=== PATIENT | male | born 1940 | race Caucasian/White ===

== ENCOUNTER 2018-10-19 15:27 | Inpatient (IN) ==
[2018-10-19] MEDS ORDERED: LOVENOX 1 MG/KG SUBQ ONE (15:31)
--- NOTE | 2018-10-19 15:50 | Diag Imaging Result Doc PS360 ---
CHEST-PORTABLE - 10/19/2018 INDICATION: arm pain COMPARISON: 05/07/2018 FINDINGS: Stable CABG changes. Stable right-sided pacemaker. Heart size is slightly enlarged. Pulmonary vascularity is normal. There are trace bilateral pleural effusions. No infiltrates or edema. IMPRESSION: Nonspecific findings. Electronically signed by Keegan Rojas 10/19/2018 3:48 PM
[2018-10-19] MEDS ORDERED: LOVENOX SUBQ ONE (16:00)
--- NOTE | 2018-10-19 16:15 | PROVIDER DOCUMENTATION ---
This chart was entered by Mallory High Scribe, acting as scribe for Mannie Lynch MD. HPI-General Adult - General Chief Complaint: Extremity Pain Stated Complaint: DR EASLEY/DR ENRIQUE REF Time Seen by Provider: 10/19/18 15:30 Source: patient Allergies/Adverse Reactions: Patient Allergies Allergy/AdvReac Type Severity Reaction Status Date / Time No Known Allergies Allergy Verified 08/12/18 08:22 Home Medications: Home Medication List Medication Instructions Recorded Confirmed Last Taken Type Apixaban [Eliquis] 5 mg PO BID 05/07/18 10/19/18 10/19/18 History Aspirin [Adult Aspirin] 81 mg PO QHS 05/07/18 10/19/18 10/18/18 History Cholecalciferol (Vitamin D3) 2,000 unit PO DAILY 05/07/18 10/19/18 10/19/18 History [Vitamin D3] Cyanocobalamin (Vitamin B-12) 5,000 mcg PO DAILY 05/07/18 10/19/18 10/19/18 History [Vitamin B12] ROSUVAstatin [Crestor] 20 mg PO QHS 05/07/18 10/19/18 10/18/18 History Sacubitril/Valsartan [Entresto 24 1 each PO DAILY 05/07/18 10/19/18 10/19/18 History mg-26 mg Tablet] Vit C/Vit E Acetate/Lutein/Min 1 each PO DAILY 05/07/18 10/19/18 10/19/18 History [Ocuvite Lutein Capsule] Cabozantinib S-Malate [Cabometyx] 20 mg PO QHS 08/12/18 10/19/18 10/18/18 History Furosemide [Lasix] 20 mg PO DAILY 08/12/18 10/19/18 10/19/18 History Hydrocodone/Acetaminophen [[place] 1 each PO Q6H PRN PRN #12 tablet 08/12/1810/19 Unknown Rx 7.5-325 Tablet] Mirtazapine [Remeron] 15 mg PO QHS 08/12/18 10/19/18 10/18/18 History Acetaminophen [Tylenol] 1,000 mg PO Q6H PRN PRN 10/19/18 10/19/18 Unknown History Biotin 2,500 mcg PO DAILY 10/19/18 10/19/18 10/19/18 History - History of Present Illness -Gen Adult Nature of Presenting Problems: Patient is a 78 year old male who presents to the ED with right arm pain and swelling. Patient's daughter states patient was seen by PCP this morning and informed he has a blood clot in right arm. Patient's daughter states patient has a history of renal cell carcinoma with mets. Patient's daughter states patient is on Eliquis. Location of Pain/Injury: reports: upper extremity (right arm) Pain Radiation: reports: no radiation Quality of Pain: reports: aching Severity: reports: mild Onset/Duration: reports: this morning Timing: reports: still present Context/Activities at Onset: reports: light activity Modifying Factors: improves with: nothing Associated Symptoms: reports: denies symptoms Similar Symptoms Previously?: No Recently seen or treated by another doctor?: Yes Review of Systems - Adult - REVIEW OF SYSTEMS - ADULT Constitutional: reports: no symptoms reported Eyes: reports: no symptoms reported Ears, Nose, Mouth & Throat: reports: no symptoms reported Cardiovascular: reports: no symptoms reported Respiratory: reports: no symptoms reported Gastrointestinal: reports: no symptoms reported Genitourinary: reports: no symptoms reported Musculoskeletal: reports: other (right arm pain and swelling). denies: back pain, neck pain Integumentary: reports: no symptoms reported Neurological: reports: no symptoms reported Psychiatric: reports: no symptoms reported Endocrine: reports: no symptoms reported Hematologic/Lymphatic: reports: no symptoms reported Allergic/Immunologic: reports: no symptoms reported All Other Systems: Reviewed and Negative Past History - Adult - PAST MEDICAL HISTORY-ADULT Review of Records: reports: Nursing Assessment Review, Medications Reviewed, Social history reviewed & non-contributory. Major Childhood Illnesses: reports: denies history Cardiovascular: reports: CHF, hyperlipidemia, pacemaker (defibrillator) Respiratory: reports: denies history Gastrointestinal: reports: denies history Obstetrical/Gynecological: reports: denies history Genitourinary: reports: cancer (R kidney) Musculoskeletal: reports: denies history Neurological: reports: denies history Psychiatric: reports: denies history Endocrine/Immune: reports: cancer (lymph node under R arm) Other Conditions: reports: cataract/glaucoma - PRIOR SURGERIES/PROCEDURES Surgical/Procedure History: reports: CABG, hernia repair, other (cataract removal, R nephrectomy, carotid, DVT removed) - IMMUNIZATION STATUS Childhood Immunizations: See Nurse Assessment Flu Vaccine: See Nurse Assessment - FAMILY HISTORY Family History: reviewed, not pertinent - SOCIAL HISTORY Smoking: denies Substance Use: denies Physical Exam-General - PHYSICAL EXAM-ADULT Initial Vital Signs Reviewed: Yes - CONSTITUTIONAL General Appearance: alert, no apparent distress - HEAD, EARS, NOSE, MOUTH & THROAT HENMT: normal ENT inspection - NECK Neck: normal inspection - RESPIRATORY Respiratory: chest non-tender, lungs clear, normal breath sounds - CARDIOVASCULAR Cardiovascular: normal peripheral pulses, irregularly irregular - GASTROINTESTINAL (ABDOMEN) Abdominal Exam: normal bowel sounds, non tender, soft - MUSCULOSKELETAL Extremity: non-tender, other (3 + pitting edema to right upper extremity.) - SKIN Integumentary: normal color, normal turgor, warm/dry - NEUROLOGIC Neurologic: grossly normal - PSYCHIATRIC Psych/Mental Status: normal mood/affect, oriented x 3 Progress - PLAN OF CARE/RESULTS Progress/Plan/Lab Results: Vital Signs - 8 hr 10/19/18 15:32 Temperature 97.5 F L Pulse Rate 115 H Respiratory Rate 18 Blood Pressure 109/93 O2 Sat by Pulse Oximetry 100 Orders Category Date Time Status Saline Loc NOW Care 10/19/18 15:30 Active CHEST-PORTABLE [RAD] Stat Exams 10/19/18 15:31 Ordered CBC WITH ELECTRONIC DIFF [HEME] Stat Lab 10/19/18 15:30 Uncollected COMPREHENSIVE METABOLIC PANEL [CHEM] Stat Lab 10/19/18 15:30 Uncollected PRO B-NATRIURETIC PEPTIDE Stat Lab 10/19/18 15:31 Uncollected PROTIME WITH INR [COAG] Stat Lab 10/19/18 15:31 Uncollected PTT [COAG] Stat Lab 10/19/18 15:31 Uncollected TROPONIN T Stat Lab 10/19/18 15:31 Uncollected Enoxaparin 1 mg/kg [Lovenox 1 mg/kg] Med 10/19/18 15:31 Discontinued 1 each SUBQ NOW ONE - REASSESSMENT Reassessment #1 Time Reassessed: 16:15 Status: unchanged (given lovenox, labs currently pending.) - XRAY 1 XRAY Study: Chest Impression: See EMR Report ( CHEST-PORTABLE - 10/19/2018 INDICATION: arm pain COMPARISON: 05/07/2018 FINDINGS: Stable CABG changes. Stable right-sided pacemaker. Heart size is slightly enlarged. Pulmonary vascularity is normal. There are trace bilateral pleural effusions. No infiltrates or edema. IMPRESSION: Nonspecific findings. Electronically signed by Keegan Rojas 2018 3:48 PM 10/19/18 1548 Interpreting Physician: Keegan Rojas MD Dictated Date/Time: 10/19/18 1548 cc: Mannie Lynch MD; Duglas Enrique MD) - CONSULTS/PCP/HOSPITALIST Notification #1 *Consult/PCP/Hospitalist*: JAS Gant for Hospitalist Time Discussed: 16:08 (Dr. Bingham accepted admit) Reason/Comments: consulted with Stalin about patient. Consult Disposition: Will see in ED, Admit Departure - Departure Date of Disposition Decision: 10/19/18 Time of Disposition Decision: 16:08 DIAGNOSIS: DVT of right axillary vein, acute, Metastatic renal cell carcinoma of pancreas Disposition: ADMITTED INPATIENT 09 Certified Medical Emergency: Emergent Condition: Fair Referrals and Follow-Ups: Duglas Enrique MD [Primary Care Provider] - - Critical Care Note This patient required my direct & personal management of CC.: No Attestation - Physician/ RADHA Attestation Patient care was provided by Advanced Practice Provider:: No The physician spent face to face time with patient:: Yes Advanced Practice Provider documentation review:: Supervising physician onsite and consulted in the evaluation and care of this patient. The physician did have a face to face encounter with the patient. This chart was documented by the indicated scribe, (Mallory High Scribe) and accurately reflects the services I performed and decisions made by me, Mannie Lynch MD, as attested by the provider's signature.
[2018-10-19 16:34] LABS: BASO# 0.01 X1000 (0.0-0.2); BASO% 0.3 % (0.0-0.8); EOS# 0.09 X1000 (0.0-0.7); EOS% 2.3 % (0.0-10.0); HEMATOCRIT 27.7 % (42.0-52.0); HEMOGLOBIN 8.4 g/dL (14.0-18.0); LYMPH# 0.76 X1000 (1.2-3.4); LYMPH% 19.6 % (20.5-51.1); MCHC 30.3 g/dL (33-37); MCV 102.2 FL (81-99); MONO# 0.23 X1000 (0.11-0.59); MONO% 5.9 % (1.7-9.3); MPV 9.9 FL (7.4-10.4); NEUT# 2.79 X1000 (1.4-6.5); NEUT% 71.9 % (42.2-75.2); PLT 148 X1000 (130-400); RBC 2.71 XMIL (4.7-6.1); RDW 17.8 % (11.5-14.5); WBC 3.88 X1000 (4.8-10.8)
[2018-10-19 16:57] LABS: ALB/GLOB RATIO 1.1; ALBUMIN 3.4 g/dL (3.5-5.0); CALCIUM 8.1 mg/dL (8.8-10.2); CREATININE 1.2 mg/dL (0.7-1.2); POTASSIUM 2.6 mmol/L (3.5-5.1); TOTAL BILIRUBIN 0.21 mg/dL (0.20-1.00); TOTAL PROTEIN 6.5 g/dL (6.3-8.3)
[2018-10-19] MEDS ORDERED: KLOR-CON PO ONE ×2 (17:11→17:42)
[2018-10-19 17:31] LABS: INR 1.29; PROTIME 17.1 Seconds (11.0-16.0)
[2018-10-19 17:35] LABS: PTT 40.6 Seconds (22.3-41.8)
[2018-10-19] MEDS ORDERED: TYLENOL PO PRN (17:42)
[2018-10-19] MEDS ORDERED: ZOFRAN IV PRN (17:42)
[2018-10-19] MEDS ORDERED: NORCO-7.5 PO PRN (17:42)
--- NOTE | 2018-10-19 18:06 | HISTORY AND PHYSICAL ---
ADDENDUM: PHYSICAL EXAMINATION: VITAL SIGNS: Temperature is 97.5 degrees, heart rate 58, respirations 15, blood pressure 116/59, O2 is 99% on room air. GENERAL: Mr. Godinez is a pleasant, 78-year-old male who is sitting up in the stretcher, in no acute distress. HEENT: Atraumatic, normocephalic. PERRL. NECK: Supple. Trachea midline. CV: S1, S2 appreciated. No murmurs, gallops, rubs noted. RESPIRATORY: Lung sounds clear to excursion. Nonlabored breathing. GI: Soft, nontender, nondistended. Positive bowel sounds 4 quadrants. EXTREMITIES: Negative for edema. Bilateral pedal pulses are palpable. He does have right upper extremity edema secondary to his DVT. SKIN: Warm, dry, and intact. NEUROLOGIC: No focal deficits noted. Patient is alert and oriented x4. Follows commands. Moves all extremities. ASSESSMENT AND PLAN: Failed outpatient deep vein thrombosis prophylaxis with Eliquis. Per daughter, when he was admitted 6 months ago for acute cholecystitis, status post cholecystectomy he has had swelling in that right upper extremity since that time. They did do a Doppler at the time of that admission, but it just showed a superficial DVT. Again, he is on full-dose Lovenox and will await further recommendations per Dr. Mancera. Dictated by JAS Napoles for Will Bingham MD cc: MD Kenneth Torres MD Michael C. Donham, MD
[2018-10-19] MEDS ORDERED: MAGNESIUM SULFATE 2 GM/S.W.I. 2 GM/50 ML IVPB IV ONE (18:10)
--- NOTE | 2018-10-19 18:37 | HISTORY AND PHYSICAL ---
PRIMARY CARE PROVIDER: Duglas Gonzalez MD ONCOLOGIST: Kenneth Mancera MD CHIEF COMPLAINT: Left upper extremity swelling, positive results on ultrasound for left upper extremity deep venous thrombosis. HISTORY OF PRESENT ILLNESS: Mr. Godinez is a pleasant 78-year-old male who carries a past medical history of metastatic renal cell carcinoma, status post a right nephrectomy, ischemic cardiomyopathy, severe coronary artery disease status post CABG, history of a right lower extremity DVT on Eliquis, hyperlipidemia, hypertension, questionable atrial fibrillation. Mr. Godinez reports he went to see Dr. Gonzalez in reference to his continued left upper extremity edema. They did a Doppler ultrasound where they found a DVT. We do not have those official results back. Dr. Gonzalez spoke with Dr. Mancera, and the patient was sent to be evaluated and admitted through the ER. He was given full dose Lovenox. He was found to be anemic with an hemoglobin and hematocrit of 8 and 27, hypokalemic with a potassium of 2.4. Chest x-ray is still pending. He reports he has had some weakness in the past. He was supposed to follow up with Dr. Holley last week; however, that appointment had to be canceled, and they have not had a re- followup yet. This was for positive occult blood stools per the daughter's report; however, the patient denies any black tarry stools, bright red blood from his rectum, or any hematuria. He does not notice any easy bruising, no headache, no fever, no chills, no cough, no chest pain, no shortness of breath, no nausea, vomiting, or diarrhea. He will be admitted to the regular floor. We will monitor him on telemetry and continue with his workup and consult Dr. Mancera. REVIEW OF SYSTEMS: A 14-point review of systems completely negative except for those mentioned in HPI. PAST MEDICAL HISTORY: 1. Metastatic renal cell carcinoma status post right nephrectomy. 2. Ischemic cardiomyopathy. He has a pacemaker ICD. 3. Severe coronary artery disease. No chest pain, status post CABG. 4. History of right lower extremity DVT on Eliquis b.i.d. 5. Hyperlipidemia. 6. Hypertension. 7. Questionable atrial fibrillation. SURGICAL HISTORY: 1. Recent cholecystitis status post cholecystectomy. 2. Right nephrectomy. 3. Pacemaker. 4. CABG. 5. Hernia repair. 6. Cataract surgery. 7. Left carotid endarterectomy. SOCIAL HISTORY: He recently moved to [place] over a year ago from [place]. Denies any tobacco, alcohol or illicit drug use. He is a . He has a supportive daughter at bedside. FAMILY HISTORY: Noncontributory. ALLERGIES: No known drug allergies. HOME MEDICATIONS: 1. Eliquis 5 mg p.o. b.i.d. 2. Tylenol 1000 mg p.o. q.6 hours p.r.n. 3. Aspirin 81 mg p.o. at bedtime. 4. Biotin 2500 mcg p.o. daily. 5. Cabometyx 20 mg p.o. at bedtime. 6. Vitamin D3 2000 units p.o. daily. 7. Vitamin B12 5000 mcg p.o. daily. 8. Lasix 20 mg p.o. daily. 9. [place] 7.5/325 one each p.o. q.6 hours p.r.n. 10. Remeron 15 mg p.o. at bedtime. 11. Crestor 20 mg p.o. at bedtime. 12. Entresto 24-26 mg tablet 1 each p.o. daily. 13. Ocuvite lutein 1 each p.o. daily. DIAGNOSTIC DATA: Pending ultrasound report, pending chest x-ray. LABORATORY DATA: White count 3, hemoglobin and hematocrit 8 and 27, platelet count 148,000. PT 17, INR 1.29, PTT 40.6. Sodium 144, potassium 2.6, BUN 18, creatinine 1.2, blood glucose 98, proBNP 2274, albumin 3.4. ASSESSMENT AND PLAN: 1. Left upper extremity deep venous thrombosis per ED report. We are awaiting official over- read; however, ED was instructed to give full dose Lovenox. We will hold his Eliquis. Consult Dr. Mancera. 2. Anemia. The patient was supposed to be worked up by Dr. Holley last week; however, that appointment was canceled, and they were supposed to reschedule. I do not think that has happened yet. He denies any overt bleeding, bruising. No black tarry stools. No bright red blood from bottom, no coffee-grounds emesis, no nosebleeds. We will watch his hemoglobin and hematocrit closely. Consult Dr. Holley if necessary. 3. Metastatic renal cell carcinoma status post right nephrectomy. Again, Dr. Mancera is aware. The patient is in-house. We will continue his nightly oral chemotherapy. 4. Ischemic cardiomyopathy, aware. The patient does have a pacemaker ICD. We will continue his home medications. 5. Severe coronary artery disease without chest pain. 6. History of right lower extremity deep venous thrombosis. 7. Hyperlipidemia. 8. Hypertension. Per daughter at bedside, patient had been taken off a lot of his medications and some of them were halved secondary to hypotension. We will continue to monitor closely. 9. Questionable atrial fibrillation. Patient does have a pacemaker. We will monitor on telemetry. 10. Hypokalemia. We will replenish and recheck in the a.m. 11. Further recommendations to follow physician's evaluation, laboratory data and diagnostic data. Dictated by JAS Napoles for Will Bingham MD cc: MD Duglas Torres MD Naveen T. Lobo, MD
--- NOTE | 2018-10-19 19:23 | PROGRESS NOTE ---
DATE: 10/19/2018 Mr. Godinez is an 78-year-old male with a history of metastatic renal cell cancer status post right nephrectomy, ischemic cardiomyopathy, severe coronary artery disease status post CABG, hypertension and hyperlipidemia. The patient had been on oral anticoagulant for DVT involving the right upper extremity, specifically Eliquis. Recent Doppler ultrasound did confirm evidence of DVT involving the left and the right upper extremity. We do not have that report right in the hospital. The right upper extremity is grossly swollen as well as [*]. The plan is to start patient on Lovenox and to hold Eliquis. We will also get a CTA of the chest to rule out any evidence of PE. cc: Will Bingham MD
--- NOTE | 2018-10-19 20:44 | Diag Imaging Result Doc PS360 ---
CT ANGIOGRM PULMONARY ARTERIES - 10/19/2018 INDICATION: r/o PE TECHNIQUE: Axial CT images were obtained after administering intravenous contrast. Coronal MIP images were generated. COMPARISON: None FINDINGS: There is no pulmonary embolism. There is a right-sided pacemaker. There is significant cardiomegaly. There are small bilateral pleural effusions. There is severe body wall edema. There are cholecystectomy clips. There is some mild pulmonary edema in the lung bases with some faint infiltrate and thickened intralobular pulmonary septae. Bony structures are intact. IMPRESSION: No pulmonary embolism. Cardiomegaly, pulmonary edema, pleural effusions. Body wall edema. This exam was performed using automated exposure control, adjustment of mA or kV according to patient size, and/or use of iterative reconstruction technique Electronically signed by Keegan Rojas 10/19/2018 8:41 PM
[2018-10-19] MEDS ORDERED: PATIENT'S OWN MED PO SCH (21:00)
[2018-10-19] MEDS ORDERED: ASPIRIN EC PO SCH (21:00)
[2018-10-19] MEDS ORDERED: CRESTOR PO SCH (21:00)
[2018-10-19] MEDS ORDERED: REMERON PO SCH (21:00)
[2018-10-20] MEDS ORDERED: KLOR-CON PO ONE (01:00)
[2018-10-20] MEDS: LOVENOX SUBQ SCH ×3 (02:20→17:36)
[2018-10-20 05:59] LABS: BASO# 0.04 X1000 (0.0-0.2); BASO% 1.1 % (0.0-0.8); EOS# 0.09 X1000 (0.0-0.7); EOS% 2.5 % (0.0-10.0); HEMATOCRIT 24.5 % (42.0-52.0); HEMOGLOBIN 7.6 g/dL (14.0-18.0); LYMPH# 0.92 X1000 (1.2-3.4); LYMPH% 25.2 % (20.5-51.1); MCH 31.1 PG (27-31); MCV 100.4 FL (81-99); MONO# 0.34 X1000 (0.11-0.59); MONO% 9.3 % (1.7-9.3); MPV 9.4 FL (7.4-10.4); NEUT# 2.26 X1000 (1.4-6.5); NEUT% 61.9 % (42.2-75.2); PLT 131 X1000 (130-400); RBC 2.44 XMIL (4.7-6.1); RDW 17.7 % (11.5-14.5); WBC 3.65 X1000 (4.8-10.8)
[2018-10-20 06:18] LABS: AGAP 13; ALB/GLOB RATIO 1.3; ALBUMIN 2.9 g/dL (3.5-5.0); ALKALINE PHOSPHATASE 120 U/L (32-122); BUN 15 mg/dL (8-22); CALCIUM 7.7 mg/dL (8.8-10.2); CHLORIDE 108 mmol/L (98-107); COSMO 285; CREATININE 0.9 mg/dL (0.7-1.2); ESTIMATED GFR > 60; GLUCOSE 80 mg/dL (70-104); GOT 18 U/L (10-34); GPT 14 U/L (10-44); IRON SATURATION 12 %; MAGNESIUM 1.3 mg/dL (1.5-2.7); POTASSIUM 3.3 mmol/L (3.5-5.1); SODIUM 143 mmol/L (136-145); TCO2 22 mmol/L (25-35); TIBC 177 ug/dL; TOTAL BILIRUBIN 0.26 mg/dL (0.20-1.00); TOTAL IRON 22 ug/dL (53-167); TOTAL PROTEIN 5.2 g/dL (6.3-8.3); UNBOUND IRON 155 ug/dL (112-346)
[2018-10-20 08:01] LABS: FERRITIN 56 ng/mL (30-400)
[2018-10-20] MEDS ORDERED: OCUVITE LUTEIN & ZEAXANTHIN PO SCH (09:00)
[2018-10-20] MEDS ORDERED: BIOTIN PO SCH (09:00)
[2018-10-20] MEDS ORDERED: LASIX PO SCH (09:00)
[2018-10-20] MEDS ORDERED: VITAMIN B-12 PO SCH (09:00)
[2018-10-20] MEDS ORDERED: ENTRESTO 24 MG-26 MG TABLET PO SCH (09:00)
[2018-10-20] MEDS ORDERED: VITAMIN D PO SCH (09:00)
[2018-10-20] MEDS ORDERED: INJECTAFER 750 MG in NS 250 ML IV ONE (11:29)
[2018-10-20] MEDS ORDERED: NS 500 ML ONE (13:15)
--- NOTE | 2018-10-20 14:30 | HEMO/ONC CONSULTATION ---
DATE: 10/20/2018 CHIEF COMPLAINT: We are consulted for further management of patient's metastatic renal cell carcinoma and DVT, failed outpatient on Eliquis. HISTORY OF PRESENT ILLNESS: Mr. Godinez is a pleasant 78-year-old male who presented to the emergency department complaining of right arm pain and swelling. The patient was seen by primary care provider and sent to the emergency department due to having a DVT in the right arm. Patient was admitted at that time for further evaluation and management Mr. Godinez is well known to us in our clinic where he follows up for his metastatic right renal cell carcinoma. The patient underwent right nephrectomy for stage I clear cell carcinoma. He was diagnosed with right axillary mass which was biopsy-proven to have metastatic clear cell renal carcinoma and was started back on Cabometyx on 03/23/2018. The patient also has a history of thrombocytopenia. The patient has been on Cabometyx 20 mg daily. The patient is on reduced dose due to increased amount of side effects. PAST MEDICAL HISTORY: Metastatic renal cell carcinoma, status post right nephrectomy, ischemic cardiomyopathy, severe coronary artery disease, history of right lower extremity DVT, hyperlipidemia, hypertension, and atrial fibrillation. SURGICAL HISTORY: Cholecystitis status post cholecystectomy, right nephrectomy, pacemaker, CABG, hernia repair, cataract surgery, left carotid endarterectomy. SOCIAL HISTORY: Denies any tobacco, alcohol, illicit drug use. FAMILY HISTORY: Noncontributory. ALLERGIES: No known drug allergies. HOME MEDICATION: Eliquis, Tylenol, aspirin 81 mg, Biotin 2500, Cabometyx, vitamin D3, vitamin B12, Lasix 20, [place] 7.5, Remeron, Crestor, Entresto, Ocuvite lutein. REVIEW OF SYSTEMS: Negative unless mentioned in HPI. PHYSICAL EXAM: Vital Signs: Temperature 97.8 degrees, heart rate 60, respiratory rate 16, blood pressure 120/58, saturating 95% on room air. General: The patient is awake, lying in bed, no acute distress noted. HEENT: Anicteric. Pupils PERRLA. Mucous membranes moist. Neck: Supple. Trachea midline. No JVD. Lymph Nodes: [place] noted to right axillary. Chest: Bilateral breath sounds clear to auscultation. Cardiovascular: S1, S2. Regular rate and rhythm. Abdomen: Soft, nontender. Bowel sounds present all 4 quadrants. Skin: Warm dry and intact. Extremities: Left upper extremity edema noted. Neurologic: Alert and oriented x3. No focal deficits noted. LABORATORY DATA: White count 3.65, hemoglobin 7.6, hematocrit 24.5, platelets 131,000, potassium 3.3, BUN 15, creatinine 0.9. ASSESSMENT AND PLAN: 1. Metastatic renal cell carcinoma: Patient has been on Cabometyx 20 mg daily. Continue Cabometyx at this time. We will continue to monitor closely. 2. Deep venous thrombosis right upper extremity: Patient will continue on his full-dose Lovenox at this time. Waiting on the official venous Doppler results at this time. We will continue to monitor closely. 3. Anemia: Hemoglobin and hematocrit continue to trend downward. Today, hemoglobin is 7.6, hematocrit 24.5. Baseline hemoglobin on last CBC was running anywhere from 11.9 to 10.1, hematocrit 34.4, to 40. The patient has been following Dr. Holley as outpatient. Due to significant drops in hemoglobin and hematocrit and some other Hemoccult cards in office, that appointment had to be cancelled at this time. I made need to consider consulting Dr. Holley. We will continue to monitor closely. 4. Ischemic cardiomyopathy: Continue current medications per medical team. 5. Hyperlipidemia. 6. Hypertension. Dictated by JAS Shook for Kenneth Mancera MD Patient seen and examined. As above. Acute DVT of the right upper extremity while on aspirin and Eliquis. This is most likely due to his malignancy related to hypercoagulability. We will start him on Lovenox. Kenneth Mancera M.D. cc: JAS Shook MD [facility]
[2018-10-20 16:40] VITALS: BP 125/64
--- NOTE | 2018-10-20 19:18 | DISCHARGE SUMMARY ---
ADMISSION DATE: 10/19/2018 DISCHARGE DATE: 10/20/2018 DISPOSITION: Home. FOLLOWUP: 1. Dr. Gonzalez. 2. Dr. Mancera. CONSULTATIONS DURING THIS ADMISSION: Heme/Onc was consulted. Patient was seen by Dr. Mancera. INVASIVE PROCEDURES DONE DURING THIS ADMISSION: None. IMAGING STUDIES OF SIGNIFICANCE: A chest x-ray showed nonspecific findings. A CTA of the lungs was negative for pulmonary embolism. There was, however, cardiomegaly, pleural effusions, body wall edema. DIAGNOSES AT THE TIME OF ADMISSION: 1. Left upper extremity deep vein thrombosis. 2. Anemia. 3. Metastatic renal cell carcinoma. 4. Ischemic cardiomyopathy. 5. Coronary artery disease. DIAGNOSES AT THE TIME OF DISCHARGE: 1. Acute deep venous thrombosis in right axillary vein. 2. 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 3. History of metastatic clear renal cell carcinoma, status post right nephrectomy. 4. Suspected hypercoagulable state as a result of underlying malignancy. 5. Questionable failed outpatient Eliquis therapy. 6. Ischemic cardiomyopathy with pacemaker and implantable cardiac defibrillator. 7. History of severe coronary artery disease, currently asymptomatic. 8. Hypertension, stable. 9. Dyslipidemia. 10. History of paroxysmal atrial fibrillation. DISCHARGE MEDICATIONS: 1. Aspirin 81 mg daily. 2. Vitamin D. 3. Crestor 20 mg p.o. at bedtime. 4. Entresto 24/26 one tablet daily. 5. Furosemide 20 mg daily. 6. Remeron 50 mg p.o. at bedtime. 7. Cabometyx 20 mg p.o. at bedtime. 8. Biotene. 9. Lovenox 70 mg subcutaneously q.12. PRESENTING COMPLAINT: Left upper extremity swelling. HISTORY OF PRESENTING COMPLAINT: Mr. Godinez is an 78-year-old gentleman with a history of right clear renal cell carcinoma, status post right nephrectomy. This was found to have metastasized to the right axillary lymph node a couple of years ago. The patient follows up with Dr. Mancera. Disease seems to be fairly under control. He is also on Eliquis for DVT treatment and he reports to be very compliant with medications. However, recently he realized the right upper extremity is getting swollen. He went to his primary care doctor (Dr. Gonzalez) who ordered a Doppler ultrasound. This came back positive for an acute blood clot in the axillary vein and a chronic in the cephalic, and this was not withstanding the patient being on Eliquis. Mr. Godinez was therefore admitted. He was started on Lovenox and I personally reached out to his oncologist, Dr. Mancera, who recommended to continue the Lovenox for at least 6 weeks, and he will follow up with the patient on an outpatient basis. Today Mr. Godinez refers to be doing fairly okay. He denies any complaints. Hemoglobin has come down to about 7.6. He is getting a unit of PRBC transfusion, ordered by the hematology/oncology team, after which he will be discharged. He will follow up with Dr. Mancera and all the discharge instructions have been discussed with him. He has been advised to discontinue the Eliquis since he is going to be on injection of Lovenox. TIME SPENT FOR DISCHARGE: 36 minutes. cc: MD Kenneth Badillo MD Michael C. Donham, MD
== END 2018-10-20 17:53 | disposition home health service (06) | DRG 300 ==
LOC: ED 15:27 → 4N 16:55 → SUATTDRO 16:55
PROVIDERS: ATTEND Internal Medicine
CPT/HCPCS: 36430; 71010; 71045; 71275; 80053; 82607; 82728; 82746; 83540; 83550; 83735; 83880; 84132; 84484; 85025; 85610; 85730; 86850; 86900; 86901; 86920; 96372; 99284; A9270; J1439; J1650; J3475; J7040; J7050; P9016; Q9967